=== PATIENT | male | born 1945 | race Caucasian/White ===

== ENCOUNTER 2017-08-16 08:02 | Inpatient (IN) | payer MEDICARE ==
[2017-08-16] MEDS: TRANEXAMIC ACID 1,000 MG in DEXTROSE 5% 100 ML IVPB (06:00)
[~2017-08-16 08:02] MED LIST: BUPIVACAINE 0.5% (SDV) 30 ML, morphine SULFATE (PF) 8 MG, EPINEPHrine 0.3 MG, KETOROLAC... IRR; DEXAMETHASONE 4 MG/ML 1 ML INJ; LIDOCAINE 2% (SDV) 5 ML INJ; ONDANSETRON 4 MG INJ; PROPOFOL 200 MG INJ; ROCURONIUM 50 MG INJ; SOD CHLORIDE 0.9% 100 ML, TRANEXAMIC ACID 3,000 MG IRR
[2017-08-16] MEDS: GABAPENTIN 300 MG CAP PO ×2 (08:46→20:31)
[2017-08-16] MEDS: DEXAMETHASONE 1 MG TAB PO (08:47)
[2017-08-16] MEDS: traMADol 50 MG TAB PO (08:47)
[2017-08-16] MEDS: LACTATED RINGER'S 1,000 ML IV* (08:48)
[2017-08-16] MEDS: VANCOMYCIN 1 GM (PMX) 250 ML IVPB (09:30)
[2017-08-16] MEDS ORDERED: morphine SULFATE/PF (10 MG/10 ML) INJ (10:13)
[2017-08-16] MEDS ORDERED: BUPIVACAINE 0.75%/DEXT (SPINAL) 2 ML INJ (10:13)
[2017-08-16] MEDS ORDERED: MIDAZOLAM 1 MG/ML 2 ML INJ (10:21)
[2017-08-16] MEDS ORDERED: FENTAnyl 50 MCG/ML VIAL (10:22)
[2017-08-16] MEDS ORDERED: THROMBIN 5000 UNIT VIAL (10:25)
[2017-08-16] MEDS ORDERED: CA CHLORIDE 10% 10 ML SYRINGE (10:25)
[2017-08-16] MEDS: POLYMYXIN/BACITRACIN 1L IRRIG (12:08)
[2017-08-16] MEDS ORDERED: morphine 2 MG INJ IV ×2 (13:00)
[2017-08-16] MEDS ORDERED: OXYCODONE/ACETAMINOPHEN (5/325) TAB PO ×3 (13:00→14:00)
[2017-08-16] MEDS ORDERED: ACETAMINOPHEN 500 MG TAB PO (13:00)
[2017-08-16] MEDS ORDERED: MAGNESIUM HYDROXIDE 30ML CUP PO (13:00)
[2017-08-16] MEDS ORDERED: DIPHENHYDRAMINE 50 MG INJ IV ×3 (13:00→14:00)
[2017-08-16] MEDS: TRANEXAMIC ACID 1,000 MG in DEXTROSE 5% 100 ML IV (13:00)
[2017-08-16] MEDS ORDERED: ZOLPIDEM 5 MG TAB PO ×2 (13:00→14:00)
[2017-08-16] MEDS ORDERED: KETOROLAC 15 MG INJ IV (13:00)
[2017-08-16] MEDS ORDERED: ONDANSETRON 4 MG INJ IV ×3 (13:00→14:00)
[2017-08-16] MEDS ORDERED: NEOSTIGMINE 3 MG/3 ML SYRINGE (13:05)
[2017-08-16] MEDS ORDERED: GLYCOPYRROLATE 0.4 MG INJ (13:05)
[2017-08-16] MEDS ORDERED: LABETALOL HCL 20MG INJ IV (14:00)
[2017-08-16] MEDS ORDERED: EPHEDrine SULFATE 50 MG/5 ML SYG IV (14:00)
[2017-08-16] MEDS ORDERED: FENTAnyl 50 MCG/ML VIAL IV ×3 (14:00)
[2017-08-16] MEDS ORDERED: METOCLOPRAMIDE 10 MG INJ IV (14:00)
[2017-08-16] MEDS ORDERED: HYDROmorphONE (0.2 MG/ML) 10ML SYG IV ×3 (14:00)
[2017-08-16] MEDS ORDERED: KETOROLAC 30 MG INJ IV ×2 (14:00)
[2017-08-16] MEDS ORDERED: MIDAZOLAM 1 MG/ML 2 ML INJ IV (14:00)
[2017-08-16] MEDS ORDERED: MEPERIDINE 25 MG INJ IV (14:00)
[2017-08-16] MEDS ORDERED: hydrALAzine 20 MG INJ IV (14:00)
[2017-08-16] MEDS ORDERED: HYDROmorphONE 0.5 MG/0.5 ML SYG IV ×2 (14:00)
[2017-08-16] MEDS ORDERED: ALBUTEROL 0.083% (NEB) 2.5 MG/3 ML AMP HHN (14:00)
[2017-08-16] MEDS ORDERED: NALOXONE (0.4 MG/ML) INJ IV (14:00)
[2017-08-16 14:53] LABS: ADD MAN DIFF? NO
[2017-08-16 15:05] LABS: WHITE BLOOD COUNT 6.5 10^3/ul (4.8-10.8)
[2017-08-16 15:05] LABS: ABNORMAL IP MESSAGE 1; BASOPHILS % 0.2 % (0.0-2.0); HEMATOCRIT 41.7 % (42.0-52.0); LYMPHOCYTES # 0.5 10^3/ul (0.8-2.9); LYMPHOCYTES % 7.8 % (15.0-51.0); MEAN CORPUSCULAR HEMOGLOBIN 31.4 pg (29.0-33.0); MEAN CORPUSCULAR HGB CONC 33.6 g/dl (32.0-37.0); MEAN CORPUSCULAR VOLUME 93.5 fl (82.0-101.0); MEAN PLATELET VOLUME 10.2 fl (7.4-10.4); MONOCYTE # 0.2 10^3/ul (0.3-0.9); MONOCYTES % 3.4 % (0.0-11.0); NEUTROPHIL # 5.7 10^3/ul (1.6-7.5); NEUTROPHILS % 88.1 % (39.0-77.0); PLATELET COUNT 144 10^3/UL (140-415); POSITIVE DIFF @See below; RED BLOOD COUNT 4.46 10^6/ul (4.70-6.10); RED CELL DISTRIBUTION WIDTH 13.4 % (11.5-14.5)
[2017-08-16] MEDS ORDERED: VANCOMYCIN 500MG/NS (PMX) 100 ML IVPB (16:00)
[2017-08-16] MEDS: DEXAMETHASONE 2 MG TAB PO (17:49)
[2017-08-16] MEDS: SENNA/DOCUSATE NA (8.6MG/50MG) TAB PO (20:31)
[2017-08-16] MEDS: LACTATED RINGER'S 1,000 ML IV ×3 (20:33→22:50)
[2017-08-16] MEDS: VANCOMYCIN 500MG/NS (PMX) 100 ML IVPB (23:12)
[2017-08-17] MEDS: DEXAMETHASONE 2 MG TAB PO ×2 (00:05→05:58)
[2017-08-17] MEDS: LACTATED RINGER'S 1,000 ML IV (08:39)
[2017-08-17] MEDS: OXYCODONE/ACETAMINOPHEN (5/325) TAB PO (08:47)
[2017-08-17] MEDS: ASPIRIN 81 MG TAB PO (08:47)
[2017-08-17] MEDS: SENNA/DOCUSATE NA (8.6MG/50MG) TAB PO (08:47)
== END 2017-08-17 11:30 | disposition home health service (06) | DRG 470 ==
LOC: REC 08:02 → MS1 15:00
PROVIDERS: Orthopaedic Surgery
PROC: 0SR903A Replacement of Right Hip Joint with Ceramic Synthetic Substitute, Uncemented, Open Approach (ICD-10-PCS; principal; 2017-08-16 10:00)
DX: M16.11 Unilateral primary osteoarthritis, right hip (principal)
CPT/HCPCS: 72170; 73530; 85025; 86999; 88304; 88311; 97116; 97162; 97530

== ENCOUNTER 2017-09-06 09:22 | Inpatient (IN) | payer MEDICARE ==
[~2017-09-06 09:22] MED LIST changes: -DEXAMETHASONE 4 MG/ML 1 ML INJ; -LIDOCAINE 2% (SDV) 5 ML INJ; -ONDANSETRON 4 MG INJ; -PROPOFOL 200 MG INJ; -ROCURONIUM 50 MG INJ; +TRANEXAMIC ACID 1,000 MG in DEXTROSE 5% 100 ML IVPB
[2017-09-06] MEDS: DEXAMETHASONE 1 MG TAB PO (10:24)
[2017-09-06] MEDS: VANCOMYCIN 1 GM (PMX) 250 ML IVPB (10:24)
[2017-09-06] MEDS: traMADol 50 MG TAB PO (10:24)
[2017-09-06] MEDS: GABAPENTIN 300 MG CAP PO ×2 (10:25→21:01)
[2017-09-06] MEDS ORDERED: NEOSTIGMINE 3 MG/3 ML SYRINGE (10:41)
[2017-09-06] MEDS ORDERED: MIDAZOLAM 1 MG/ML 2 ML INJ (10:41)
[2017-09-06] MEDS ORDERED: morphine SULFATE/PF (10 MG/10 ML) INJ (10:41)
[2017-09-06] MEDS ORDERED: ROCURONIUM 50 MG INJ (10:41)
[2017-09-06] MEDS ORDERED: DEXAMETHASONE 4 MG/ML 1 ML INJ (10:41)
[2017-09-06] MEDS ORDERED: FENTAnyl 50 MCG/ML VIAL (10:41)
[2017-09-06] MEDS ORDERED: PROPOFOL 20 ML (10:41)
[2017-09-06] MEDS ORDERED: GLYCOPYRROLATE 0.4 MG INJ (10:41)
[2017-09-06] MEDS ORDERED: CEFAZOLIN 1 GM INJ (10:41)
[2017-09-06] MEDS ORDERED: ONDANSETRON 4 MG INJ (10:41)
[2017-09-06] MEDS ORDERED: BUPIVACAINE 0.75%/DEXT (SPINAL) 2 ML INJ (10:43)
[2017-09-06 11:18] LABS: ADD MAN DIFF? NO
[2017-09-06 11:24] LABS: WHITE BLOOD COUNT 4.6 10^3/ul (4.8-10.8)
[2017-09-06 11:24] LABS: BASOPHILS % 0.7 % (0.0-2.0); EOSINOPHILS # 0.1 10^3/ul (0.0-0.5); EOSINOPHILS % 1.5 % (0.0-7.0); HEMATOCRIT 41.3 % (42.0-52.0); HEMOGLOBIN 13.5 g/dl (14.0-18.0); LYMPHOCYTES # 1.1 10^3/ul (0.8-2.9); LYMPHOCYTES % 24.6 % (15.0-51.0); MEAN CORPUSCULAR HGB CONC 32.7 g/dl (32.0-37.0); MEAN CORPUSCULAR VOLUME 94.7 fl (82.0-101.0); MEAN PLATELET VOLUME 11.6 fl (7.4-10.4); MONOCYTE # 0.6 10^3/ul (0.3-0.9); MONOCYTES % 13.4 % (0.0-11.0); NEUTROPHIL # 2.7 10^3/ul (1.6-7.5); NEUTROPHILS % 59.4 % (39.0-77.0); PLATELET COUNT 124 10^3/UL (140-415); RED BLOOD COUNT 4.36 10^6/ul (4.70-6.10); RED CELL DISTRIBUTION WIDTH 13.4 % (11.5-14.5)
[2017-09-06 11:42] LABS: ANION GAP 14 (8-16); CARBON DIOXIDE 31 mmol/L (21-31); CHLORIDE 103 mmol/L (97-110); GLUCOSE 89 mg/dl (70-220)
[2017-09-06 11:43] LABS: BLOOD UREA NITROGEN 19 mg/dl (7-20); CREATININE 0.81 mg/dl (0.61-1.24); POTASSIUM 4.1 mmol/L (3.5-5.1); SODIUM 144 mmol/L (135-144)
[2017-09-06 11:45] LABS: PROTIME 13.3 Sec (11.9-14.9)
[2017-09-06 11:46] LABS: PARTIAL THROMBOPLASTIN TIME 27.3 Sec (25.0-35.0)
[2017-09-06] MEDS ORDERED: THROMBIN 5000 UNIT VIAL (11:54)
[2017-09-06] MEDS ORDERED: SUGAMMADEX SODIUM 200 MG/2 ML VIAL IV (13:21)
[2017-09-06] MEDS: POLYMYXIN/BACITRACIN 1L IRRIG (13:46)
[2017-09-06] MEDS: TRANEXAMIC ACID 1,000 MG in DEXTROSE 5% 100 ML IV (14:00)
[2017-09-06] MEDS ORDERED: MAGNESIUM HYDROXIDE 30ML CUP PO (14:00)
[2017-09-06] MEDS ORDERED: morphine 2 MG INJ IV ×2 (14:00)
[2017-09-06] MEDS ORDERED: OXYCODONE/ACETAMINOPHEN (5/325) TAB PO (14:00)
[2017-09-06] MEDS ORDERED: ACETAMINOPHEN 500 MG TAB PO (14:00)
[2017-09-06] MEDS ORDERED: VANCOMYCIN 500MG/NS (PMX) 100 ML IVPB (14:00)
[2017-09-06] MEDS ORDERED: ONDANSETRON 4 MG INJ IV (14:00)
[2017-09-06] MEDS ORDERED: KETOROLAC 15 MG INJ IV (14:00)
[2017-09-06] MEDS ORDERED: ZOLPIDEM 5 MG TAB PO (14:00)
[2017-09-06] MEDS ORDERED: DIPHENHYDRAMINE 50 MG INJ IV (14:00)
[2017-09-06 15:00] LABS: ADD MAN DIFF? NO
[2017-09-06 15:15] LABS: BASOPHILS % 0.2 % (0.0-2.0); EOSINOPHILS % 0.2 % (0.0-7.0); HEMATOCRIT 39.6 % (42.0-52.0); HEMOGLOBIN 12.9 g/dl (14.0-18.0); LYMPHOCYTES # 0.7 10^3/ul (0.8-2.9); LYMPHOCYTES % 11.8 % (15.0-51.0); MEAN CORPUSCULAR HEMOGLOBIN 31.3 pg (29.0-33.0); MEAN CORPUSCULAR HGB CONC 32.6 g/dl (32.0-37.0); MEAN CORPUSCULAR VOLUME 96.1 fl (82.0-101.0); MEAN PLATELET VOLUME 9.9 fl (7.4-10.4); MONOCYTE # 0.2 10^3/ul (0.3-0.9); NEUTROPHIL # 4.8 10^3/ul (1.6-7.5); NEUTROPHILS % 83.3 % (39.0-77.0); PLATELET COUNT 155 10^3/UL (140-415); RED BLOOD COUNT 4.12 10^6/ul (4.70-6.10); RED CELL DISTRIBUTION WIDTH 13.3 % (11.5-14.5)
[2017-09-06 15:15] LABS: WHITE BLOOD COUNT 5.8 10^3/ul (4.8-10.8)
[2017-09-06] MEDS: LACTATED RINGER'S 1,000 ML IV ×2 (18:10→23:53)
[2017-09-06] MEDS: DEXAMETHASONE 2 MG TAB PO ×2 (18:19→23:55)
[2017-09-06] MEDS: SENNA/DOCUSATE NA (8.6MG/50MG) TAB PO (21:01)
[2017-09-06] MEDS: VANCOMYCIN 500MG/NS (PMX) 100 ML IVPB (21:59)
[2017-09-07 05:03] LABS: ADD MAN DIFF? NO
[2017-09-07 05:05] LABS: WHITE BLOOD COUNT 7.8 10^3/ul (4.8-10.8)
[2017-09-07 05:05] LABS: ABNORMAL IP MESSAGE 1; BASOPHILS % 0.1 % (0.0-2.0); HEMATOCRIT 35.9 % (42.0-52.0); HEMOGLOBIN 11.8 g/dl (14.0-18.0); LYMPHOCYTES # 0.5 10^3/ul (0.8-2.9); LYMPHOCYTES % 6.5 % (15.0-51.0); MEAN CORPUSCULAR HEMOGLOBIN 31.5 pg (29.0-33.0); MEAN CORPUSCULAR HGB CONC 32.9 g/dl (32.0-37.0); MEAN CORPUSCULAR VOLUME 95.7 fl (82.0-101.0); MEAN PLATELET VOLUME 10.1 fl (7.4-10.4); MONOCYTE # 0.7 10^3/ul (0.3-0.9); MONOCYTES % 9.1 % (0.0-11.0); NEUTROPHIL # 6.6 10^3/ul (1.6-7.5); PLATELET COUNT 153 10^3/UL (140-415); POSITIVE DIFF @See below; RED BLOOD COUNT 3.75 10^6/ul (4.70-6.10); RED CELL DISTRIBUTION WIDTH 13.2 % (11.5-14.5)
[2017-09-07] MEDS: DEXAMETHASONE 2 MG TAB PO (06:12)
[2017-09-07] MEDS: OXYCODONE/ACETAMINOPHEN (5/325) TAB PO (06:17)
[2017-09-07] MEDS: SENNA/DOCUSATE NA (8.6MG/50MG) TAB PO (08:33)
[2017-09-07] MEDS: ASPIRIN 81 MG TAB PO (08:34)
[2017-09-07] MEDS: LACTATED RINGER'S 1,000 ML IV (09:40)
[2017-09-07] MEDS: VANCOMYCIN 500MG/NS (PMX) 100 ML IVPB (10:00)
[2017-09-07] MEDS ORDERED: VANCOMYCIN 500MG/NS (PMX) 100 ML IVPB (12:15)
== END 2017-09-07 12:30 | disposition home or self-care (01) | DRG 468 ==
LOC: REC 09:22 → MS1 17:43
PROC: 0SR904A Replacement of Right Hip Joint with Ceramic on Polyethylene Synthetic Substitute, Uncemented, Open Approach (ICD-10-PCS; principal; 2017-09-06 11:30)
PROC: 0SP90JZ Removal of Synthetic Substitute from Right Hip Joint, Open Approach (ICD-10-PCS; 2017-09-06 11:30)
DX: T84.020A Dislocation of internal right hip prosthesis, initial encounter (principal)
CPT/HCPCS: 72170; 73530; 80048; 85025; 85610; 85730; 86999; 87086; 97162